=== PATIENT | female | born 2000 | race Caucasian/White ===

== ENCOUNTER 2019-07-05 11:37 | Outpatient (CLI) | payer MEDICAID ==
[~2019-07-05 11:37] MED LIST: PNV11TAB PO
--- NOTE | 2019-07-05 11:41 | NSTRPT ---
NST Information Datetime Report Generated by CPN: 07/05/2019 11:40 Datetime: 06/25/2019 09:45 NST Information EGA: 33.2 Test Number: 3 Time on Monitor: 06/25/2019 10:17 Time off Monitor: 06/25/2019 10:45 NST Duration (Min): 28 Reason for NST: Other Reason for NST Other: MARGINAL CORD INSERTION Test and Monitor Explained: Monitor Explained; Test Explained; Verbalized Understanding Pulse: 67 Resp: 18 SBP: 95 DBP: 52 Test Evaluation NST Interventions: Other NST Interventions Other: Some LOC ,US repositioned x 2 Patient States Movement: Present Contraction Frequency: x2/30/mild/pain level 0 FHR Baseline : 125 Variability: Moderate 6-25bpm Accelerations: 15X15 Decelerations: None FHR Category: Category I NST Results: Reactive Provider Notified: Dr. Hernandez, No need to return as stated by Doctor Comments: PT TO U/S FRANDY 12.7 cm cephalic Placental cord insertion is NOT marginal. Electronically Signed By E-Signature: with User ID: [id number] Datetime: 06/22/2019 08:39 NST Information EGA: 32.6 Test Number: 2 Time on Monitor: 06/22/2019 08:54 Time off Monitor: 06/22/2019 09:17 NST Duration (Min): 23 Reason for NST: Other Reason for NST Other: Marginal Cord Insertion Test and Monitor Explained: Monitor Explained; Test Explained; Verbalized Understanding Pulse: 72 Resp: 18 SBP: 96 DBP: 55 Test Evaluation NST Interventions: Reposition Patient; Acoustic Stimulation NST Interventions Other: 0910 FAS followed by accel to 150 Patient States Movement: Present Contraction Frequency: none FHR Baseline : 135 Variability: Moderate 6-25bpm Accelerations: 15X15 Decelerations: None FHR Category: Category I NST Results: Reactive Comments: To u/s FRANDY 12.8 CM CEPHALIC Electronically Signed By E-Signature: with User ID: [id number] Datetime: 06/18/2019 09:29 NST Information EGA: 32.2 NST Duration (Min): 24
[2019-07-05 11:52] VITALS: BP 107/65; PULSE 72; RESP 16
[2019-07-05] MEDS ORDERED: ACETAMINOPHEN 500 MG TAB PO STA (12:45)
[2019-07-05] MEDS ORDERED: DIPHENHYDRAMINE 25 MG CAP PO ONE (13:00)
[2019-07-05] MEDS ORDERED: HYDROCORTISONE 0.5% 28.35 GM CR TOP SCH (14:00)
--- NOTE | 2019-07-05 14:26 | PN ---
Triage Information Date/Time Vital Signs Date Temp Pulse Resp B/P (MAP) Pulse Ox O2 O2 Flow FiO2 Time Delivery Rate 07/05/19 98.6 72 16 107/65 Room Air 11:52 (79) Subjective: presents with complaints rash x5 days. Onset of rash on the abdomen with attention to lower and upper extremities. Itchiness associated. Pain on the abdomen. Palms itching. No itchiness of the soles of the feet. Denies any headaches or visual changes. No recent contacts with similar rashes. No recent medications. No recent detergents. No contact with gardening. Objective: General: No apparent distress Abdomen:Gravid, erythematous papules noted on the abdomen right upper extremity right lower extremity. Periumbilical sparing. Extremities: Nontender Assessment/Plan: 1. Rash-likely PUPPPS. cmp and bile acids ordered. given benadryl, tylenol and hydrocortisone cream follow up s/p rx without pain or itching. Disposition: discharge to home. Reason for visit: Weeks of Gestation 34.5 /Para 2/0 Objective Vital Signs Date Temp Pulse Resp B/P (MAP) Pulse Ox O2 O2 Flow FiO2 Time Delivery Rate 07/05/19 98.6 72 16 107/65 Room Air 11:52 (79) Results/Medications Medications Current Medications Hydrocortisone (Hydrocortisone 0.5% Cr) 1 applic BID TOP ; Start 07/05/19 at 14:00 TERI PERALTA MD Jul 05, 2019 14:26
--- NOTE | 2019-07-05 14:49 | TRIAGE ---
OB Triage Datetime Report Generated by CPN: 07/05/2019 14:49 Datetime: 07/05/2019 13:41 Pain Assessment Pain Scale: 0 Pain Assessment Comments: benedryl has helpded with the irching per pt Datetime: 07/05/2019 12:30 Labor Evaluation Frequency: rare Resting Tone [place]: Relaxed Heart Rate FHR Baseline Rate: 140 Monitor Mode: External US Variability: Moderate 6-25 bpm Accelerations: 15X15 Decelerations: None Category: Category I Datetime: 07/05/2019 12:10 Labor Evaluation Frequency: irreg Monitor Mode: External Quality: Mild Pattern: Normal: <= 5 Contractions in 10 Minutes Resting Tone [place]: Relaxed Contraction Comments: pt denies feeling UC's Heart Rate FHR Baseline Rate: 130 Variability: Moderate 6-25 bpm Accelerations: 15X15 Decelerations: None Category: Category I Datetime: 07/05/2019 11:47 Stage of : OB Triage Assessment Type: Triage Maternal Assessment Level of Consciousness: Keenly Alert, Responsive DTR's/Clonus: DTRs 2+; No Clonus Headache: Denies Blurred Vision: No Respiratory Effort: Unlabored; Regular Rhythm; Equal Expansion Breath Sounds, Left: Clear and Equal Breath Sounds, Right: Clear and Equal Nausea/Vomiting: Denies RUQ Epigastric Pain: Denies Lower Extremities Edema: None Degree: None Upper Extremities Edema: None Degree: None Facial Edema: None Temperature Route: Axillary Fall Risk Assessment History of Falling: (0) No Secondary Diagnosis: (0) No Ambulatory Aid: (0) Bedrest/Nurse Assist IV Therapy: (0) No Gait: (0) Normal/Bedrest/Immobile Mental Status: (0) Oriented to Own Ability Fall Score: 0 Fall Risk Score Definition: No Risk: No action required Datetime: 06/25/2019 09:45 Time of Arrival: 07/05/2019 11:30 EGA: 34.5 Arrived By: Ambulatory Arrived From: Home Chief Complaint: abdominal rash x 3 days Also noted on both upper legs - painful and itchy per pt report Movement: Present Contractions: Denies/Absent Rupture of Membranes: Denies Vaginal Discharge: Denies Recent Sexual Intercouse: Denies Abdominal Trauma: Not Applicable Time Provider Notified: 07/05/2019 11:55 Provider Notified: Milestone Initial Plan: labs, US
== END 2019-07-05 14:30 | disposition home or self-care (01) ==
LOC: OBT 11:37 → L-D 11:39 → OBT 14:30
PROVIDERS: ATTEND Obstetrics & Gynecology
DX: O26.893 Other specified pregnancy related conditions, third trimester (principal); Z3A.34 34 weeks gestation of pregnancy; R21 Rash and other nonspecific skin eruption
CPT/HCPCS: 76818; 80053; 83789; Z7500; Z7610; G0463